=== PATIENT | female | born 1975 | race Caucasian/White ===

== ENCOUNTER 2023-03-30 21:39 | Emergency (ER) | payer OTHER ==
[~2023-03-30] VITALS: Ht 160 cm; Wt 81.6 kg
[2023-03-30 22:05] VITALS: BP 122/83; PULSE 81; RESP 16; TEMP 98.1; O2SAT 98
== END 2023-03-30 22:35 | disposition left against medical advice (07) ==
LOC: MED 21:39
DX: R10.11 Right upper quadrant pain (principal); Z53.21 Procedure and treatment not carried out due to patient leaving prior to being seen by health care provider
CPT/HCPCS: 99281